=== PATIENT | female | born 1975 | race Two or more races ===

== ENCOUNTER 2018-08-31 21:37 | Emergency (ER) | payer BC, MEDICAID ==
[~2018-08-31] VITALS: Ht 154.9 cm; Wt 70.8 kg
[2018-08-31 21:41] VITALS: BP 132/91
[2018-08-31] MEDS ORDERED: IBUPROFEN 600 MG TABLET PO ONE ×2 (22:21→22:30)
--- NOTE | 2018-08-31 23:17 | NUR ---
Patient discharged to home in stable condition. Written and verbal after care instructions given. Patient verbalizes understanding of instruction.
== END 2018-08-31 23:17 | disposition home or self-care (01) ==
LOC: ER 21:41
DX: S16.1XXA Strain of muscle, fascia and tendon at neck level, initial encounter (principal); S40.011A Contusion of right shoulder, initial encounter; V49.49XA Driver injured in collision with other motor vehicles in traffic accident, initial encounter; Y93.89 Activity, other specified; Y92.413 State road as the place of occurrence of the external cause; Y99.8 Other external cause status
CPT/HCPCS: 72050; 73030; 99283; A4606

== ENCOUNTER 2019-03-10 00:39 | Emergency (ER) | payer BC ==
[~2019-03-10] VITALS: Ht 154.9 cm; Wt 74.4 kg
--- NOTE | 2019-03-10 01:15 | NUR ---
bib family for c/o lower abd and back pain. she is on her third day of her menstrual period and experiencing a very heavy vag. bleeding. pt usually have heavy bleeding and pain during her period but this time the pain meds she took at home did not help which brought her to the ER
[2019-03-10 01:28] LABS: HEMOGLOBIN 7.5 g/dL (11.5-14.8); NEUTROPHILS # (AUTO) 8.5 /CMM (1.8-8.9)
[2019-03-10] MEDS ORDERED: MORPHINE SULFATE INJ 2 MG/ML DISP.SYRIN IV ONE (01:30)
[2019-03-10] MEDS ORDERED: IV NS 0.9% 1,000 ML BAG IV ONE (01:30)
[2019-03-10 01:33] LABS: BASOPHILS % (AUTO) 0.4 % (0.0-2.0); EOSINOPHILS % (AUTO) 0.3 % (0.0-6.0); HEMATOCRIT 24 % (33-45); LYMPHOCYTES # (AUTO) 0.8 /CMM (0.8-4.8); LYMPHOCYTES % (AUTO) 8.4 % (20.0-44.0); MEAN CORPUSCULAR HGB CONC 31 g/dl (31.0-36.0); MEAN CORPUSCULAR VOLUME 63 fL (82-100); MONOCYTES # (AUTO) 0.6 /CMM (0.1-1.30); MONOCYTES % (AUTO) 5.8 % (2.0-12.0); NEUTROPHILS % (AUTO) 85.1 % (43.0-81.0); PLATELET COUNT (AUTO) 253 /CMM (150-450); RED BLOOD CELL COUNT(AUTO) 3.85 MIL/uL (4.0-5.2)
[2019-03-10] MEDS ORDERED: MORPHINE SULFATE INJ 4 MG/ML DISP.SYRIN ONE (01:33)
[2019-03-10 01:40] LABS: CALCIUM, SERUM 8.2 mg/dL (8.5-10.1); CREATININE 0.7 mg/dL (0.6-1.3)
--- NOTE | 2019-03-10 02:00 | NUR ---
per pt she is not taking any medication in regular basis at home.
[2019-03-10] MEDS ORDERED: HYDROCODONE/APAP 10/325MG 1 EA TABLET ONE (02:15)
--- NOTE | 2019-03-10 02:26 | NUR ---
IV removed. Catheter intact and site benign. Pressure and 4x4 applied to site. No bleeding noted.Patient discharged to home in stable condition. Written and verbal after care instructions given. Patient verbalizes understanding of instruction. pt left w/ steady gait.
[2019-03-10 02:28] VITALS: BP 127/78
[2019-03-10] MEDS ORDERED: HYDROCODONE/APAP 10/325MG 1 EA TABLET PO ONE (02:30)
[2019-03-10 02:58] LABS: EOSINOPHILS % (MANUAL) 1 % (0-4); LYMPHOCYTES % (MANUAL) 7 % (16-48); MONOCYTES % (MANUAL) 5 % (0-11.0); NEUTROPHILS % (MANUAL) 87 (42-76)
== END 2019-03-10 02:29 | disposition home or self-care (01) ==
LOC: ER 00:40
DX: R10.2 Pelvic and perineal pain (principal); D64.9 Anemia, unspecified; N93.9 Abnormal uterine and vaginal bleeding, unspecified; N92.0 Excessive and frequent menstruation with regular cycle
CPT/HCPCS: 36415; 80048; 82962; 84702; 85025; 85730; 86850; 96374; 99283; J2270; J7030